=== PATIENT | male | born 1980 | race African-American/Black ===

== ENCOUNTER 2021-12-05 16:56 | Emergency (ER) | payer OTHER ==
[~2021-12-05] VITALS: Ht 190.5 cm; Wt 166.9 kg
--- NOTE | ~2021-12-05 | EMS ---
[place] [address] EMS Patient Care Report Name: JAN LOVE Room #: PRE M.RSundar#: [id number] Admission: Attend Phys: Discharge: Date of : 84 Report #: [id number] THIS REPORT FOR: //name// Report Transmitted: 12/05/2021 16:49 EMS Care Summary [place], [place]/[facility] Incident [id number] @ 12/05/2021 16:24 Incident Location [facility] / [place] [address] Patient JAN LOVE Male, 41 Years 1980 Patient Address [address] [place] [address] Patient History Diabetes,Hypertension (HTN),Seizures,Hydrocephalus, Patient Medications Dilantin, Chief Complaint Stroke Disposition Transported [place] Dispatch Reason Convulsions/Seizure Transported To [facility] Narrative M41 dispatched for a 41 year old male not conscious and breathing having a seizure. 1 responds to the scene emergent using lights and sirens. Arrival at the scene patient is located inside the business on the floor actively convulsing. Patient is given 5mg of Midazolam IN. Patients seizure stops and patient is alert and GCS14.Patient is Oriented to person place and event. Patient has a patent airway is breathing adequately [place] [address] EMS Patient Care Report Name: JAN LOVE [id number] Admission: Attend Phys: Discharge: Date of : 84 Report #: [id number] pulses. Skin is noted to be pale and diaphoretic. Patient is unable to stand up or move. Patient is placed on the soft stretcher and moved to the stretcher and secured in the fowlers position using seatbelts and rails. Patient is moved to the ambulance and VS and ECG are obtained.12 lead ECG shows a sinus tachycardia with a RBBB. IV access is established in the right antecubital region using a 20G IV and secured with a venigard. 10 ML NS is flushed. Glucose check results are 131mg/dL. [place] stroke scale assessment revealing left sided weakness,left sided facial droop with slurred speech. Transport is initiated to [facility] with a stroke alert emergent using lights and sirens. Assessment is conducted. Patient is GCS 15, AAOx4. Patient has a patent airway is breathing adequately with strong regular radial pulses. Skin is pale cool and dry. HEENT are WNL. Left sided facial droop is noted with slurred speech. Trachea is midline with no JVD noted. Chest wall is stable and intact with symmetrical rise and fall. Lung sounds are clear and equal. Abdomen is soft and nontender with no distention or rigidity noted. Pelvis is stable and intact. Left sided weakness confirmed. Arrival at the receiving facility patient is offloaded and taken to CT. RN is given report and transfer of care is completed. Signatures are obtained and M41 returns to service. Patient is unable to sign due to condition. Initial Vitals @16:41P: 115, @16:49P: 141, @16:49P: 106,R: 20,BP: 99/52,Pain: 0/10,GCS: 15,SpO2: 98,Revised Trauma: 12,MS Suspected: false @16:38P: 120,R: 22,BP: 98/63,Pain: 0/10,GCS: 15,Glucose: 131,SpO2: 99,Revised Trauma: 12,MS Suspected: false Assessments @16:31MENTAL:Confused,Person Oriented,Place Oriented,Event Oriented,SKIN:Pale,Diaphoresis,HEENT:Head/Face: Facial Droop,LUNG SOUNDS:General: No Abnormalities,Left Upper: No Abnormalities,Right Upper: No Abnormalities,Left Lower: No Abnormalities,Right Lower: No Abnormalities,ABDOMEN:General: No Abnormalities,Left Upper: No Abnormalities,Right Upper: No Abnormalities,Left Lower: No Abnormalities,Right Lower: No Abnormalities,PELVIS//GI:No Abnormalities,EXTREMITIES:Left Arm: Weakness,Left Leg: Weakness,Right Arm: No Abnormalities,Right Leg: No Abnormalities,PULSE:Radial: 2+ Normal,Brachial: 2+ Normal,NEURO:Slurred Speech,Weakness Left-Sided,Facial Droop,Seizures, Impression Seizures without status epilepticus [address] [address] EMS Patient Care Report Name: KATEJAN ARIES Room #: [facility] M.R.#: [id number] Admission: Attend Phys: Discharge: Date of : 84 Report #: [id number] Procedures @16:41 12-Lead ECG Response: UnchangedSucceeded @16:32 ALS Assessment Response: UnchangedSucceeded @16:34 IV Therapy - Saline Lock 10cc (20 ga) Site: Antecubital-Right Response: UnchangedSucceeded @16:32 Midazolam - 5 Milligrams (mg) - Intramuscular (IM) Response: Improved Timeline 16:22,Call Received 16:22,Dispatch Notified 16:24,Dispatched 16:24,En Route 16:26,On Scene 16:29,At Patient 16:32,Midazolam - 5 Milligrams (mg) - Intramuscular (IM),Response: Improved 16:32,ALS Assessment,Response: UnchangedSucceeded, 16:34,IV Therapy - Saline Lock 10cc 20 ga Site: Antecubital-Right,Response: UnchangedSucceeded, 16:38,BP: 98/63 M,PULSE: 120,RR: 22 R,SPO2: 99 Ox,ETCO2: ,B,PAIN: 0,GCS: 15, 16:41,12-Lead ECG,Response: UnchangedSucceeded, 16:41,BP: / M,PULSE: 115,RR: R,SPO2: Ox,ETCO2: ,BG: ,PAIN: ,GCS: , 16:45,Depart Scene 16:49,BP: / M,PULSE: 141,RR: R,SPO2: Ox,ETCO2: ,BG: ,PAIN: ,GCS: , 16:49,BP: 99/52 M,PULSE: 106,RR: 20 R,SPO2: 98 Ox,ETCO2: ,BG: ,PAIN: 0,GCS: 15, 17:10,At Destination 17:19,Call Closed Disclaimer v1.1 Copyright 2021 [employer] This EMS Care Summary contains data elements from the applicable legal record (which may be displayed differently). It is designed to provide pertinent information for the following purposes: continuity of care, clinical quality, and state data reporting. The complete legal record is available to ED staff and administrators of the receiving hospital in [employer] Patient Tracker. All data is provided "as is."
[~2021-12-05 16:56] MED LIST: ADULT ONE DAI200 MCG PO; ASPIRIN EC81 M1 PO; CARDIA; CARDIZEM CD 18180 M3 PO; CINNAMON PO; COZAAR 25 MG TA25 M1 PO; DILANTIN100 MG PO; FENOFIBRATE145 M1 PO; GLUCOPHAGE500 MG PO; HUMALOG100 UNIT/2 SQ; HYDROCHLOROTHIA25 M1 PO; KEPPRA 500 MG500 M1 PO; KEPPRA 500 MG500 M2 PO; LANTUS SUBQ; LANTUS100 UNIT/M SUBQ; LISINOPRIL2.5 MG; LISINOPRIL40 MG PO; NOVOLOG100 UNIT/1 SUBQ; TRICOR145 MG PO; TRICOR48 MG
[2021-12-05 17:40] LABS: ABSOLUTE NEUTROPHILS 5.7 thou/uL (1.4-8.2); BASOPHILS 1.4 % (0.0-2.0); HEMATOCRIT 44.1 % (42.0-52.0); HEMOGLOBIN 14.7 gm/dL (14.0-18.0); MCH 31.4 pg (26.0-34.0); MCHC 33.4 g/dL (28.0-37.0); MCV 94.3 fL (80.0-100.0); MONOCYTES 8.1 % (1.0-8.0); PLATELET COUNT 204 thou/uL (150-400); POLYS 65.5 % (36.0-66.0); RBC 4.68 mil/uL (4.50-6.00); RDW 14.3 % (10.5-14.5); WBC 8.7 thou/uL (4.0-11.0)
[2021-12-05 17:51] LABS: CALCIUM 9.3 mg/dL (8.5-10.1); POTASSIUM 4.6 mmol/L (3.5-5.1)
[2021-12-05 18:00] LABS: ALBUMIN 3.9 g/dL (3.4-5.0); TOTAL BILIRUBIN 0.3 mg/dL (0.2-1.0); TOTAL PROTEIN 7.8 g/dL (6.4-8.2)
[2021-12-05 18:57] LABS: APTT 24.3 Seconds (24.5-32.8); INR 1.08; PROTIME 11.7 Seconds (10.5-12.1)
[2021-12-05] MEDS ORDERED: ATIVAN1 M1 PO (19:31)
[2021-12-05 20:25] VITALS: BP 124/79
--- NOTE | 2021-12-06 07:48 | EKG ---
[place] [address] [facility] [place] [address] ELECTROCARDIOGRAM REPORT Name: JAN LOVE Room #: DEP ERICKA Cha#: [id number] Admission: 12/05/21 Attend Phys: Discharge: 12/05/21 Date of : 84 Report #: [id number] [facility] ED Test Date: 2021-12-05 Test Time: 17:55:25 Pat Name: JAN LOVE Department: Room: Gender: M Racker Octave Board: [id number] : 1980 Requested By: oLi Quintanilla Order Number: [id number] MD: Rahul Lazcano Measurements Intervals [place] Rate: 104 P: 21 MT: 135 QRS: 34 QRSD: 119 T: 23 QT: 358 QTc: 471 Interpretive Statements Sinus tachycardia Early R wave progression Compared to ECG 09/10/2014 02:04:49 Intraventricular conduction delay now present Early R wave progression is now present Electronically Signed On 12-06-2021 7:48:14 [employer]MING MACHINE OPERATOR by Rahul Lazcano [email or web address] <ELECTRONICALLY SIGNED> By: Rahul Lazcano MD, [facility] 12/06/21 [id number] 1755 Rahul Lazcano MD, FACC /EPI
== END 2021-12-05 20:26 | disposition home or self-care (01) ==
LOC: ER 16:56
PROVIDERS: Emergency Medicine
DX: G83.84 Todd's paralysis (postepileptic) (principal); R56.9 Unspecified convulsions; I10 Essential (primary) hypertension; E11.9 Type 2 diabetes mellitus without complications; E78.00 Pure hypercholesterolemia, unspecified; Z79.82 Long term (current) use of aspirin; Z79.4 Long term (current) use of insulin; Z79.899 Other long term (current) drug therapy